=== PATIENT | female | born 2000 | race Caucasian/White ===

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

== ENCOUNTER 2023-05-31 16:48 | Emergency (ER) | payer OTHER ==
[2023-05-31] MEDS ORDERED: Bacitracin Oint 1 GM U/D Packet TOP ONE (18:33)
[2023-05-31] MEDS ORDERED: Diphtheria,Pertussis(Acell),Tetanus Vaccine 0.5 ML Syringe IM ONE (18:34)
[2023-05-31] MEDS ORDERED: Cephalexin 500 MG Cap PO ONE (18:41)
[2023-05-31] MEDS ORDERED: Ibuprofen 800 MG Tab PO ONE (18:42)
[2023-05-31 23:54] VITALS: BP 129/86; PULSE 78
== END 2023-05-31 19:52 | disposition home or self-care (01) ==
LOC: MW.ED 16:48
DX: L03.115 Cellulitis of right lower limb (principal); Z23 Encounter for immunization
CPT/HCPCS: 73590; 90471; 90715; 99283; A9270

== ENCOUNTER 2023-08-06 21:17 | Emergency (ER) | payer SELFPAY ==
[2023-08-06 21:25] VITALS: BP 124/76
[2023-08-06] MEDS ORDERED: predniSONE 20 MG Tab PO ONE (21:35)
[2023-08-06] MEDS ORDERED: diphenhydrAMINE 50 MG Cap PO ONE (21:35)
[2023-08-06] MEDS ORDERED: Famotidine 20 MG Tab PO ONE (21:35)
[2023-08-06 22:17] VITALS: PULSE 76
== END 2023-08-06 22:17 | disposition home or self-care (01) ==
LOC: MW.ED 21:17
DX: R22.1 Localized swelling, mass and lump, neck (principal)
CPT/HCPCS: 99283; A9270